=== PATIENT | female | born 1945 | race Caucasian/White ===

== ENCOUNTER 2017-10-08 07:37 | Day surgery (SDC) | payer MEDICARE, OTHER ==
[~2017-10-08 07:37] MED LIST: KETOROLAC TROMETHAMINE 0.45% 4 DROP/0.4 ML DROPERETTE OS PRN
[2017-10-08] MEDS: TETRACAINE HCL 0.5% OPH SOLN 0.6 ML DROPERETTE OS PRN ×4 (08:13→08:39)
[2017-10-08] MEDS: TROPICAMIDE 1% OPH SOLN 3 ML OS PRN ×3 (08:14→08:30)
[2017-10-08] MEDS: CYCLOPENTOLATE 0.2%/PHENYLEPHRINE 1% OPH SOLN 2 ML OS PRN ×3 (08:14→08:30)
[2017-10-08] MEDS: BESIFLOXACIN HCL 0.6% OPH SUSP 5 ML BOTTLE OS PRN ×4 (08:14→08:57)
[2017-10-08] MEDS ORDERED: MIDAZOLAM 2 MG/2 ML INJ ONE (08:33)
[2017-10-08] MEDS: CHONDR SU A NA/HYALUR INTRAOC KIT (SURGICARE) ONE ×2 (08:46)
[2017-10-08] MEDS: EPINEPHRINE INJ/PF 1 MG/1 ML AMPULE ONE ×2 (08:46)
[2017-10-08] MEDS: LIDOCAINE 1% INJ-PF (10 MG/ML) 30 ML SDV ONE ×2 (08:46)
[2017-10-08] MEDS: TOBRAMYCIN SULFATE/DEXAMETH OPH OINTMENT 3.5 GM ONE ×2 (08:57)
== END 2017-10-08 09:35 | disposition home or self-care (01) ==
LOC: SC 07:37
PROVIDERS: ATTEND Ophthalmology
PROC: 08RK3JZ Replacement of Left Lens with Synthetic Substitute, Percutaneous Approach (ICD-10-PCS; principal; 2017-10-08 08:30)
DX: H25.12 Age-related nuclear cataract, left eye (principal); F17.210 Nicotine dependence, cigarettes, uncomplicated; I10 Essential (primary) hypertension; E78.00 Pure hypercholesterolemia, unspecified; Z88.2 Allergy status to sulfonamides
CPT/HCPCS: 66984; V2630; J2250; J3490 ×3; A9270; J0171; 142

== ENCOUNTER 2017-10-22 06:49 | Day surgery (SDC) | payer MEDICARE, OTHER ==
[~2017-10-22 06:49] MED LIST changes: +KETOROLAC TROMETHAMINE 0.45% 4 DROP/0.4 ML DROPERETTE OD PRN; -KETOROLAC TROMETHAMINE 0.45% 4 DROP/0.4 ML DROPERETTE OS PRN
[2017-10-22] MEDS: TETRACAINE HCL 0.5% OPH SOLN 0.6 ML DROPERETTE OD PRN ×3 (07:13→07:49)
[2017-10-22] MEDS: CYCLOPENTOLATE 0.2%/PHENYLEPHRINE 1% OPH SOLN 2 ML OD PRN ×3 (07:13→07:28)
[2017-10-22] MEDS: TROPICAMIDE 1% OPH SOLN 3 ML OD PRN ×3 (07:13→07:28)
[2017-10-22] MEDS ORDERED: CHONDR SU A NA/HYALUR INTRAOC KIT (SURGICARE) ONE (07:14)
[2017-10-22] MEDS ORDERED: TOBRAMYCIN SULFATE/DEXAMETH OPH OINTMENT 3.5 GM ONE (07:14)
[2017-10-22] MEDS ORDERED: LIDOCAINE 1% INJ-PF (10 MG/ML) 30 ML SDV ONE (07:14)
[2017-10-22] MEDS ORDERED: EPINEPHRINE INJ/PF 1 MG/1 ML AMPULE ONE (07:14)
[2017-10-22] MEDS: BESIFLOXACIN HCL 0.6% OPH SUSP 5 ML BOTTLE OD PRN ×3 (07:14→08:11)
[2017-10-22] MEDS ORDERED: BESIFLOXACIN HCL 0.6% OPH SUSP 5 ML BOTTLE ONE (07:14)
[2017-10-22] MEDS ORDERED: MIDAZOLAM 2 MG/2 ML INJ ONE (07:17)
== END 2017-10-22 08:51 | disposition home or self-care (01) ==
LOC: SC 06:49
PROVIDERS: ATTEND Ophthalmology
PROC: 08RJ3JZ Replacement of Right Lens with Synthetic Substitute, Percutaneous Approach (ICD-10-PCS; principal; 2017-10-22 07:45)
DX: H25.11 Age-related nuclear cataract, right eye (principal); Z98.42 Cataract extraction status, left eye; I10 Essential (primary) hypertension; E78.00 Pure hypercholesterolemia, unspecified; K21.9 Gastro-esophageal reflux disease without esophagitis; F17.210 Nicotine dependence, cigarettes, uncomplicated; Z88.2 Allergy status to sulfonamides
CPT/HCPCS: 66984; V2630; J2250; J3490 ×3; A9270 ×2; J0171; 142